=== PATIENT | female | born 1970 | race African-American/Black ===

== ENCOUNTER 2019-07-27 17:08 | Emergency (ER) | payer MEDICARE, MEDICAID ==
[~2019-07-27] VITALS: Ht 162.6 cm; Wt 71.0 kg
--- NOTE | 2019-07-27 18:14 | NUR ---
PT HAS CO OF INCREASED THIRST, WEAKNESS, DIZZYNESS, POLYURIA. DENIES CP, N/V. NO SOB OR COUGH. PT STATES FAMILY HX DIABETES. PT HAS NEVER FOLLOWED UP W PCP. PT PROVIDED, UA, LABS DRAWN. VSS.
[2019-07-27 18:30] LABS: ALBUMIN 4.3 g/dL (3.4-5.0); ANION GAP 10 mmol/L (5-15); CALCIUM 10.4 mg/dL (8.5-10.1); CHLORIDE 98 mmol/L (98-107)
[2019-07-27 18:35] LABS: MICROSCOPIC NOT IND
[2019-07-27 18:36] LABS: BASOPHILS # (AUTO) 0.05 x10^3/uL (0-0.1); BASOPHILS % (AUTO) 0 % (0-1); EOSINOPHILS # (AUTO) 0.14 x10^3/uL (0-0.4); EOSINOPHILS % (AUTO) 1 % (1-7); LYMPHOCYTES # (AUTO) 3.29 x10^3/uL (1-3.4); LYMPHOCYTES % (AUTO) 25 % (22-44); MD NO; MEAN CORPUSCULAR HGB CONC 32.2 g/dL (32.4-35.8); MEAN CORPUSCULAR VOLUME 83.9 fL (80-100); MEAN PLATELET VOLUME 9.1 fL (7.4-10.4); MONOCYTES % (AUTO) 3 % (2-9); NEUTROPHILS # (AUTO) 9.18 x10^3/uL (1.8-6.8); NEUTROPHILS % (AUTO) 70 % (42-75); PLATELET COUNT 318 x10^3/uL (130-400); RED BLOOD COUNT 5.94 x10^6/uL (3.82-5.3); RED CELL DISTRIBUTION WIDTH 13.5 % (9.6-15.2)
[2019-07-27 18:41] LABS: ALANINE AMINOTRANSFERASE 38 U/L (12-78); ALKALINE PHOSPHATASE 156 U/L (45-117); BILIRUBIN,TOTAL 0.5 mg/dL (0.2-1.0); CREATININE 1.19 mg/dL (0.55-1.02); FREE T4 (FREE THYROXINE) 1.37 ng/dL (0.76-1.46); TOTAL PROTEIN 8.7 g/dL (6.4-8.2)
--- NOTE | 2019-07-27 19:42 | NUR ---
PT SITTING UP ON GURNEY, MONITORS IN PLACE, SIDERAIL SUP X2, CALL LIGHT WITHIN REACH. CHART UP FOR RECHECK
[2019-07-27] MEDS ORDERED: SODIUM CHLORIDE 0.9% 1,000ML IVBOLUS ONE (20:00)
--- NOTE | 2019-07-27 20:24 | NUR ---
pt up to rr with steady gait
[2019-07-27 20:29] VITALS: BP 149/103
[2019-07-27] MEDS ORDERED: metFORMIN 500 MG TABLET ONE (21:13)
--- NOTE | 2019-07-27 21:16 | NUR ---
PT MEDICATED PER MAR
[2019-07-27] MEDS ORDERED: metFORMIN 500 MG TABLET PO ONE (21:30)
== END 2019-07-27 21:28 | disposition home or self-care (01) ==
LOC: ED 17:42
DX: E11.65 Type 2 diabetes mellitus with hyperglycemia (principal); R35.0 Frequency of micturition; R00.0 Tachycardia, unspecified; F17.200 Nicotine dependence, unspecified, uncomplicated
CPT/HCPCS: 36415; 80053; 81003; 82962; 84439; 84443; 85025; 93005; 96360; 99284; J7030

== ENCOUNTER 2019-08-01 13:24 | Emergency (ER) | payer MEDICARE, MEDICAID ==
[~2019-08-01] VITALS: Ht 162.6 cm; Wt 70.9 kg
[2019-08-01 14:08] LABS: MEAN CORPUSCULAR HEMOGLOBIN 27.5 pg (27.0-34.8); MEAN CORPUSCULAR HGB CONC 32.5 g/dL (32.4-35.8); MEAN CORPUSCULAR VOLUME 84.8 fL (80-100); PLATELET COUNT 277 x10^3/uL (130-400); RED BLOOD COUNT 5.42 x10^6/uL (3.82-5.3); RED CELL DISTRIBUTION WIDTH 13.3 % (9.6-15.2)
[2019-08-01 14:17] LABS: ALBUMIN 3.9 g/dL (3.4-5.0); ANION GAP 11 mmol/L (5-15); CALCIUM 9.4 mg/dL (8.5-10.1); CHLORIDE 100 mmol/L (98-107); CREATININE 1.18 mg/dL (0.55-1.02)
[2019-08-01 14:34] LABS: BASOPHILS # (AUTO) 0.03 x10^3/uL (0-0.1); BASOPHILS % (AUTO) 0 % (0-1); EOSINOPHILS # (AUTO) 0.04 x10^3/uL (0-0.4); EOSINOPHILS % (AUTO) 0 % (1-7); LYMPHOCYTES # (AUTO) 2.25 x10^3/uL (1-3.4); LYMPHOCYTES % (AUTO) 19 % (22-44); MD SCAN; MONOCYTES # (AUTO) 0.51 x10^3/uL (0.2-0.8); MONOCYTES % (AUTO) 4 % (2-9); NEUTROPHILS # (AUTO) 9.25 x10^3/uL (1.8-6.8); NEUTROPHILS % (AUTO) 77 % (42-75)
[2019-08-01 14:46] VITALS: BP 138/97
[2019-08-01] MEDS ORDERED: SODIUM CHLORIDE 0.9% 1,000ML IVBOLUS ONE ×2 (15:00)
[2019-08-01] MEDS ORDERED: SODIUM CHLORIDE FLUSH 10ML SYR IVF ONE (15:00)
== END 2019-08-01 16:47 | disposition home or self-care (01) ==
LOC: ED 14:26
DX: E11.65 Type 2 diabetes mellitus with hyperglycemia (principal); R42 Dizziness and giddiness; R11.0 Nausea; R00.0 Tachycardia, unspecified
CPT/HCPCS: 36415; 80048; 82040; 82962; 85025; 93005; 96360; 96361; 99284; J7030